=== PATIENT | female | born 1940 | race Caucasian/White ===

== ENCOUNTER → 2016-05-15 | Outpatient (CLI) | payer OTHER, MEDICARE ==
[~2016-05-15] MED LIST: ASPIR 8181 MG PO; BENICAR HCT 401 EACH PO; CALCIUM 600 +1 EAC1 PO; COUMADIN 1MG TAB1 M1 PO; COUMADIN 2 MG TA2 M1 PO; CRESTOR20 MG PO; FISH OIL 1,0001 EAC5 PO; GLUCOSAMINE &1 EAC1 PO; HYDROCHLOROTHIA25 M1 PO; HYDROCODON-ACE1 EAC7 PO; IBUPROFEN 200200 M1 PO; MULTIVITAMINS PO; NORCO 10-325 T1 EACH PO; SYNOVACIN500 MG PO; TRAMADOL 50 MG50 MG PO; VERAPAMIL ER240 MG PO
== END ==
LOC: RAD 01:14
DX: Z12.31 Encounter for screening mammogram for malignant neoplasm of breast (principal)

== ENCOUNTER → 2017-06-04 | Outpatient (CLI) | payer OTHER, MEDICARE | LOC: RAD 04:20 | DX: Z12.31 Encounter for screening mammogram for malignant neoplasm of breast (principal) ==

== ENCOUNTER → 2018-04-25 | Outpatient (CLI) | payer OTHER, MEDICARE ==
[~2018-04-25] VITALS: Ht 152.4 cm; Wt 81.7 kg
[~2018-04-25] MED LIST changes: +HYDROCHLOROTHIA25 M2 PO; +VITAMIN C500 M1 PO
--- NOTE | ~2018-04-25 | P ---
[facility] [place] [address] PROCEDURE REPORT Name: ZECHARIAH SALES Room #: REG [facility]#: [id number] Admission: 04/25/18 Attend Phys: Martin Lynn MD Discharge: Date of : 38 Report #: [id number] THIS REPORT FOR: //name// CC: Duke Lynn BRIEF HISTORY: The patient is a 77-year-old woman with history of colon adenomas in the past. She also recently has had rectal bleeding. PREOPERATIVE DIAGNOSIS: History of colon adenoma. POSTOPERATIVE DIAGNOSES: 1. Multiple colon polyps. 2. Diverticulosis coli, right and left colon. MEDICATIONS: Deep sedation with propofol for anesthesia. SPECIMENS: 1. Hepatic flexure polyp. 2. Proximal ascending colon polyps x 3. 3. Cecal polyps x 2. 4. Polyp at 70 cm. ESTIMATED BLOOD LOSS: 3 mL. PROCEDURE: Colonoscopy to cecum and terminal ileum with snare polypectomy and biopsy. FINDINGS: Prior to propofol sedation, procedure of colonoscopy was discussed with the patient as well as potential risks and its complications. She indicates she understands and desires to proceed. DESCRIPTION OF PROCEDURE: With the patient in left lateral decubitus position, digital examination was completed, which revealed no abnormalities. Subsequently, the Olympus video colonoscope was introduced in the rectum, advanced under direct vision to the cecum. This is done with minimal difficulty. The cecum was identified by the ileocecal valve and the appendiceal orifice. I was able to visualize the distal segment of the terminal ileum, which was inspected and noted to be unremarkable. At that point, the scope was slowly withdrawn and careful circumferential views were obtained. As we withdrew the scope, all polyps were identified. In the cecum, 2 diminutive polyps was seen and removed by biopsy. In the proximal ascending colon, a total of 3 polyps were seen, 2 were in the range of about 5 mm, removed by cold snare polypectomy, the other was a diminutive polyp removed with biopsy forceps. The scope was further withdrawn. At the hepatic flexure, a 5-6 mm sessile polyp was seen and removed by cold snare polypectomy. In addition, there were a few [facility] [address] [place] [address] PROCEDURE REPORT Name: ZECHARIAH SALES Room #: REG CL July.#: [id number] Admission: 04/25/18 Attend Phys: Martin Lynn MD Discharge: Date of : 38 Report #: [id number] scattered diverticula in the proximal colon without endoscopic evidence of diverticulitis. As we withdrew the scope, in the left colon, scattered diverticula were seen as well. Again, there is no endoscopic evidence of diverticulitis. At 70 cm, another 4-5 mm sessile polyp was seen and removed by cold snare polypectomy and recovered. In the sigmoid colon, there was noted to be moderately severe diverticular disease, no endoscopic evidence of diverticulitis. Scope was withdrawn in the rectum, no abnormalities were seen. Upon retroflexion, small hemorrhoids were seen. Scope was withdrawn. The patient tolerated the procedure well. CONDITION OF THE PATIENT UPON DISCHARGE: Following procedure, the patient drowsy, arousable and conversant and will be discharged home when fully ambulatory INSTRUCTIONS TO THE PATIENT AND FAMILY AT THE TIME OF DISCHARGE: We will follow up on the path of the polyps. If 3 or more adenomas, which I think is most likely, she is to return in 3 years; if only 1 or 2 adenomas, then 5 years would be indicated. If by chance none are adenomas, no followup will be indicated. Her previous colonoscopy was 11-12 years ago. Withdrawal time from the cecum including polyp removal was 20 minutes and 15 seconds. By: [id number] Martin Lynn MD /terri
--- NOTE | 2018-04-28 09:34 | PATH ---
[facility] [place] [address] PATHOLOGY RPT PROCEDURE Name: MARISOL VAZQUEZ Room #: REG [facility] M..#: [id number] Admission: 04/25/18 Date of : 38 Discharge: Report #: [id number] Path Case #: [id number] [facility] Accession Number: [id number] . 01 Material submitted: . PART A: POLYP AT HEPATIC FLEXURE PART B: POLYP AT PROXIMAL ASCENDING COLON X3 PART C: POLYP AT CECUM X2 PART D: POLYP AT 70CM . 01 Clinical history: . Pre-OP DX: Hx polyps, rectal bleeding Post-OP DX: Colon polyps, diverticulosis . 02 Diagnosis: A. Polyp, at hepatic flexure, endoscopic biopsy: - Tubular adenoma. - Negative for high grade dysplasia. . B. Polyp x3, at proximal ascending colon, endoscopic biopsy: - Tubular adenoma present in multiple fragments. - Negative for high grade dysplasia. . C. Polyp x2, at cecum, endoscopic biopsy: - Tubular adenoma identified in both fragments. - Negative for high grade dysplasia. . D. Polyp, at 70 cm, endoscopic biopsy: - Tubular adenoma. - Negative for high grade dysplasia. . (IUV:mml; 04/27/2018) QL/04/27/2018 . 02 Electronically signed: . Jing Mays MD, Pathologist NPI- [id number] . 01 Gross description: . A. Received in formalin labeled "GeorgeMarisol, polyp at hepatic flexure," is a single segment of hernandez soft tissue measuring 0.5 cm in maximum dimension. The specimen is entirely submitted in cassette A1. . B. Received in formalin labeled "Marisol Vazquez, polyp at proximal ascending colon x2," and additionally labeled on the requisition as "x3," are 5 segments of hernandez soft tissue measuring 1.5 x 1.5 x 0.4 cm in aggregate dimensions and ranging from 0.2 to 0.5 cm in maximum dimension. [address] [address] PATHOLOGY RPT PROCEDURE Name: MARISOL VAZQUEZ Room #: REG CLI Mirna.#: [id number] Admission: 04/25/18 Date of : 38 Discharge: Report #: [id number] Path Case #: [id number] The specimen is submitted entirely in cassette B1. . C. Received in formalin labeled "Marisol Vazquez, polyp at cecum x2," are 3 segments of hernandez soft tissue measuring 0.5 x 0.4 x 0.1 cm in aggregate dimensions and ranging from 0.2 to 0.3 cm in maximum dimension. The specimen is submitted entirely in cassette C1. . D. Received in formalin labeled "Marisol Vazquez, polyp at 70 cm," is a single segment of hernandez soft tissue measuring 0.3 cm in maximum dimension. The specimen is entirely submitted in cassette D1. (TSD; 04/25/2018) TOB/TOB . 02 Pathologist provided ICD-10: D12.3, D12.2, D12.0, D12.6 . 02 CPT . 311153, 078342, [id number], 387007 Specimen Comment: A courtesy copy of this report has been sent to Specimen Comment: [phone], . Specimen Comment: Report sent to / DR HODGSON Specimen Comment: A duplicate report has been generated due to demographic updates. Performed at: [address] [facility], [place] [id number] MD Gavin Tucker MD Phone: [phone] Performed at: [address] [id number] MD Jing Mays MD Phone: [phone]
== END | disposition home or self-care (01) ==
LOC: GI 06:33
DX: K57.30 Diverticulosis of large intestine without perforation or abscess without bleeding (principal); Z86.010 Personal history of colon polyps; D12.3 Benign neoplasm of transverse colon; D12.2 Benign neoplasm of ascending colon; D12.0 Benign neoplasm of cecum; D12.4 Benign neoplasm of descending colon; K64.8 Other hemorrhoids; I10 Essential (primary) hypertension; E78.5 Hyperlipidemia, unspecified; G47.33 Obstructive sleep apnea (adult) (pediatric); Z90.710 Acquired absence of both cervix and uterus; Z79.899 Other long term (current) drug therapy; Z79.82 Long term (current) use of aspirin; Z98.41 Cataract extraction status, right eye; Z96.651 Presence of right artificial knee joint; Z96.642 Presence of left artificial hip joint; Z98.890 Other specified postprocedural states
CPT/HCPCS: 62110; 62900

== ENCOUNTER → 2018-06-17 | Outpatient (CLI) | payer OTHER, MEDICARE | LOC: RAD 10:02 | DX: Z12.31 Encounter for screening mammogram for malignant neoplasm of breast (principal) ==

== ENCOUNTER → 2019-07-07 | Outpatient (CLI) | payer OTHER, MEDICARE | LOC: RAD 13:43 | DX: Z12.31 Encounter for screening mammogram for malignant neoplasm of breast (principal) ==

== ENCOUNTER → 2019-10-20 | Outpatient (CLI) | payer OTHER, MEDICARE | LOC: SJCVC 13:53 | PROVIDERS: ATTEND Internal Medicine Cardiovascular Disease | DX: I44.0 Atrioventricular block, first degree (principal); I44.7 Left bundle-branch block, unspecified; R94.31 Abnormal electrocardiogram [ECG] [EKG]; I35.0 Nonrheumatic aortic (valve) stenosis; R01.1 Cardiac murmur, unspecified; I10 Essential (primary) hypertension; E78.00 Pure hypercholesterolemia, unspecified; E78.5 Hyperlipidemia, unspecified; M16.12 Unilateral primary osteoarthritis, left hip; Z79.82 Long term (current) use of aspirin; Z79.899 Other long term (current) drug therapy; Z82.49 Family history of ischemic heart disease and other diseases of the circulatory system ==

== ENCOUNTER → 2020-06-28 | Outpatient (CLI) | payer OTHER, MEDICARE | LOC: SJCVCIMAG 08:58 | PROVIDERS: ATTEND Internal Medicine Cardiovascular Disease | DX: I08.3 Combined rheumatic disorders of mitral, aortic and tricuspid valves (principal); R94.31 Abnormal electrocardiogram [ECG] [EKG]; I49.3 Ventricular premature depolarization; I44.7 Left bundle-branch block, unspecified; I10 Essential (primary) hypertension; E78.00 Pure hypercholesterolemia, unspecified; M16.12 Unilateral primary osteoarthritis, left hip; E78.5 Hyperlipidemia, unspecified; Z98.890 Other specified postprocedural states; Z79.82 Long term (current) use of aspirin; Z79.899 Other long term (current) drug therapy; Z82.49 Family history of ischemic heart disease and other diseases of the circulatory system ==

== ENCOUNTER → 2020-07-16 | Outpatient (CLI) | payer OTHER, MEDICARE | LOC: BC 10:13 | PROVIDERS: ATTEND Internal Medicine | DX: Z12.31 Encounter for screening mammogram for malignant neoplasm of breast (principal) ==

== ENCOUNTER → 2020-12-31 | Outpatient (CLI) | payer OTHER, MEDICARE | LOC: SJCVCIMAG 09:19 | PROVIDERS: ATTEND Internal Medicine Cardiovascular Disease | DX: I44.7 Left bundle-branch block, unspecified (principal); I35.0 Nonrheumatic aortic (valve) stenosis; I10 Essential (primary) hypertension; R94.31 Abnormal electrocardiogram [ECG] [EKG]; E78.5 Hyperlipidemia, unspecified; R06.00 Dyspnea, unspecified; R53.83 Other fatigue ==